=== PATIENT | male | born 1975 | race Caucasian/White ===

== ENCOUNTER 2021-04-23 01:11 | Emergency (ER) | payer SELFPAY ==
[2021-04-23] MEDS ORDERED: Sulfameth/Trimethoprim DS 800-160mg TAB ONE (01:40)
== END 2021-04-23 01:46 | disposition home or self-care (01) ==
LOC: MADERS 01:11
DX: L02.415 Cutaneous abscess of right lower limb (principal); Z87.891 Personal history of nicotine dependence
CPT/HCPCS: 99283

== ENCOUNTER 2021-05-09 10:13 | Emergency (ER) | payer BC, SELFPAY ==
[2021-05-09] MEDS ORDERED: Lidocaine 1% w/Epinephrine 1:100K 20 ML VIAL ONE (11:01)
[2021-05-09] MEDS ORDERED: Lidocaine 1% (PF) 30 ML VIAL ONE (11:01)
[2021-05-09] MEDS ORDERED: Clindamycin 150 MG CAP ONE (11:43)
== END 2021-05-09 11:50 | disposition home or self-care (01) ==
LOC: MADERS 10:13
DX: L03.116 Cellulitis of left lower limb (principal); L02.416 Cutaneous abscess of left lower limb; Z87.891 Personal history of nicotine dependence
CPT/HCPCS: 10060; 87070; 87077; 87186; 87205; J2001